=== PATIENT | male | born 1955 | race Caucasian/White ===

== ENCOUNTER 2016-12-16 09:50 | Inpatient (IN) | payer OTHER ==
[2016-12-16] VITALS (13 sets, daily range): BP systolic 111–129; BP diastolic 62–84; PULSE 40–84; RESP 16–20; TEMP 97.4–98.2; O2SAT 95–99
[~2016-12-16] VITALS: Ht 177.8 cm; Wt 81.9 kg
[~2016-12-16 09:50] MED LIST: ANUS25SU PR; ASPI81TA11 PO; ENAL20TA PO; HYDR-2768 PO; METO100T PO; POTA-243 PO; PRAV40TA PO
--- NOTE | 2016-12-16 10:20 | PD ---
HPI Chief Complaint: Chest Pain Time Seen by Provider: 10:07 Travel History International Travel<30 days: No Contact w/Intl Traveler<30days: No Traveled to known affect area: No History of Present Illness HPI 61-year-old male complains of chest pain. Patient states that he has intermittent chest pain for the past 3 months. Patient states the pain associate with exertion. Patient states the pain is sharp burning pain started on the left thumb with radiation to the left chest and across anterior chest wall. Patient denies any palpitation diaphoresis. Patient states that the pain usually lasts about 5 minutes and resolved completely. Patient has history of CAD, status post [place] and CABG in 2008. Patient has history hypertension, dyslipidemia. Patient is a smoker. Patient denies any history of diabetes. Patient was seen by physician at the [facility] yesterday and had stress test done. Patient could not finish the stress test because he started having shortness of breath. Patient was advised to go to the emergency room for evaluation. Patient denies any chest pain today. PFSH Past Medical History Hx Anticoagulant Therapy: Yes (81 MG ASA DAILY ) Arthritis: No Asthma: No Autoimmune Disease: No Blood Disorders: No Anxiety: No Depression: No Heart Rhythm Problems: No Cancer: No Cardiovascular Problems: Yes High Cholesterol: No Chemotherapy: No Chest Pain: No Congestive Heart Failure: No COPD: No Cerebrovascular Accident: No Coronary Artery Disease: Yes Diabetes: No Diminished Hearing: No Endocrine: No GERD: No Glaucoma: No Genitourinary: No Headaches: No Hepatitis: No Hiatal Hernia: No Hypertension: Yes Immune Disorder: No Kidney Stones: No Musculoskeletal: No Neurologic: No Psychiatric: No Reproductive: No Respiratory: No Immunizations Current: No Migraines: No Myocardial Infarction: No Radiation Therapy: No Renal Failure: No Seizures: No Sickle Cell Disease: No Sleep Apnea: No Thyroid Disease: No Ulcer: No ?: Not Past Surgical History Abdominal Surgery: No AICD: No Appendectomy: No Arteriovenous Shunt: No Cardiac Surgery: No Cholecystectomy: No Coronary Artery Bypass Graft: Yes Ear Surgery: No Endocrine Surgery: No Eye Surgery: No Genitourinary Surgery: No Gynecologic Surgery: No Insulin Pump: No Joint Replacement: No Oral Surgery: No Pacemaker: No Thoracic Surgery: No Social History Alcohol Use: Yes (OCCASIONALLY) Tobacco Use: Yes (CIGARS ONCE-TWICE/WEEK) Substance Use: No Allergies-Medications (Allergen,Severity, Reaction): Coded Allergies: No Known Allergies (Verified , 10/31/14) Reported Meds & Prescriptions Reported Meds & Active Scripts Active Reported Potassium Chloride CR (Potassium Chloride) 10 Meq Tab 10 Meq PO DAILY Metoprolol Tartrate 50 Mg Tab 50 Mg PO BID Hydrochlorothiazide 25 Mg Tab 25 Mg PO DAILY Enalapril (Enalapril Maleate) 20 Mg Tab 20 Mg PO BID Aspirin 81 Mg Tabdr 81 Mg PO DAILY Review of Systems General / Constitutional: No: Fever Eyes: No: Visual changes HENT: No: Headaches Cardiovascular: Positive: Chest Pain or Discomfort Respiratory: No: Shortness of Breath Gastrointestinal: No: Abdominal Pain Genitourinary: No: Dysuria Musculoskeletal: No: Pain Skin: No Rash Neurologic: No: Weakness Psychiatric: No: Depression Endocrine: No: Polydipsia Hematologic/Lymphatic: No: Easy Bruising Physical Exam Narrative GENERAL: Well-nourished, well-developed patient. SKIN: Warm and dry. HEAD: Normocephalic. EYES: No scleral icterus. No injection or drainage. NECK: Supple, trachea midline. No JVD or lymphadenopathy. CARDIOVASCULAR: Regular rate and rhythm without murmurs, gallops, or rubs. RESPIRATORY: Breath sounds equal bilaterally. No accessory muscle use. GASTROINTESTINAL: Abdomen soft, non-tender, nondistended. MUSCULOSKELETAL: No cyanosis, or edema. BACK: Nontender without obvious deformity. No CVA tenderness. Neurologic exam normal. Data Data Last Documented VS Vital Signs Date Time Temp Pulse Resp B/P Pulse Ox O2 Delivery O2 Flow Rate FiO2 12/16/16 10:17 97 Room Air 12/16/16 10:09 67 16 12/16/16 10:02 98.2 126/84 Orders Electrocardiogram (12/16/16 ) Complete Blood Count With Diff (12/16/16 10:13) Comprehensive Metabolic Panel (12/16/16 10:13) Creatine Kinase (Cpk) (12/16/16 10:13) Troponin I (12/16/16 10:13) Prothrombin Time / Inr (Pt) (12/16/16 10:13) Act Partial Throm Time (Ptt) (12/16/16 10:13) Chest, Single Ap (12/16/16 10:13) Iv Access Insert/Monitor (12/16/16 10:13) Ecg Monitoring (12/16/16 10:13) Oximetry (12/16/16 10:13) Labs Laboratory Tests Test 12/16/16 10:17 White Blood Count 8.3 TH/MM3 Red Blood Count 4.97 MIL/MM3 Hemoglobin 14.6 GM/DL Hematocrit 43.7 % Mean Corpuscular Volume 88.1 FL Mean Corpuscular Hemoglobin 29.4 PG Mean Corpuscular Hemoglobin 33.4 % Concent Red Cell Distribution Width 13.9 % Platelet Count 218 TH/MM3 Mean Platelet Volume 7.8 FL Neutrophils (%) (Auto) 62.6 % Lymphocytes (%) (Auto) 23.9 % Monocytes (%) (Auto) 10.8 % Eosinophils (%) (Auto) 2.3 % Basophils (%) (Auto) 0.4 % Neutrophils # (Auto) 5.2 TH/MM3 Lymphocytes # (Auto) 2.0 TH/MM3 Monocytes # (Auto) 0.9 TH/MM3 Eosinophils # (Auto) 0.2 TH/MM3 Basophils # (Auto) 0.0 TH/MM3 CBC Comment DIFF FINAL Differential Comment Prothrombin Time 10.5 SEC Prothromb Time International 1.0 RATIO Ratio Activated Partial 26.8 SEC Thromboplast Time Sodium Level 139 MEQ/L Potassium Level 3.6 MEQ/L Chloride Level 103 MEQ/L Carbon Dioxide Level 28.9 MEQ/L Anion Gap 7 MEQ/L Blood Urea Nitrogen 22 MG/DL Creatinine 1.46 MG/DL Estimat Glomerular Filtration 49 ML/MIN Rate Random Glucose 92 MG/DL Calcium Level 9.0 MG/DL Total Bilirubin 0.9 MG/DL Aspartate Amino Transf 22 U/L (AST/SGOT) Alanine Aminotransferase 20 U/L (ALT/SGPT) Alkaline Phosphatase 95 U/L Total Creatine Kinase 98 U/L Troponin I 0.26 NG/ML Total Protein 7.1 GM/DL Albumin 3.5 GM/DL MDM Medical Decision Making Medical Screen Exam Complete: Yes Emergency Medical Condition: Yes Interpretation(s) 10:19 AM. EKG shows sinus rhythm T-wave inversion in lead I, II, aVR, aVL, V4 through V6. 12:28 PM. Last Impressions Chest X-Ray 12/16/16 1013 Signed Impressions: Service Date/Time: December 10:40 - CONCLUSION: No acute disease. Sky Herrera MD 12:28 PM. CBC within normal limit. BUN 22. Creatinine 1.46. Troponin 0.26. Differential Diagnosis Differential diagnosis including angina, AK, PE, pneumothorax. Narrative Course 61-year-old male with intermittent chest pain. Patient had a stress test done yesterday and did not pass. Patient was advised by his physician to go to ED for evaluation. Patient denies any chest pain today. Patient has history of CAD status post CABG. Diagnosis Primary Impression: NSTEMI (non-ST elevated myocardial infarction) Finn Alvarenga MD Dec 16, 2016 10:20
[2016-12-16] MEDS ORDERED: POTA10TA8 PO (10:24)
[2016-12-16] MEDS ORDERED: ASPI1TAB69 PO (10:24)
[2016-12-16] MEDS ORDERED: HYDR25TA5 PO (10:24)
[2016-12-16] MEDS ORDERED: ENAL20TA PO (10:24)
[2016-12-16] MEDS ORDERED: METO50TA PO (10:24)
[2016-12-16 10:25] LABS: AUTOMATED NEUTROPHIL # 5.2 TH/MM3 (1.8-7.7); BASOPHIL % 0.4 % (0.0-2.0); EOSINOPHIL # 0.2 TH/MM3 (0-0.4); EOSINOPHIL % 2.3 % (0.0-4.0); HEMATOCRIT 43.7 % (39.0-51.0); HEMO FLAGS DIFF FINAL; LYMPH % 23.9 % (9.0-44.0); MEAN CELL VOLUME 88.1 FL (80.0-100.0); MEAN CORPUSCULAR HEMOGLOBIN 29.4 PG (27.0-34.0); MEAN CORPUSCULAR HGB CONC 33.4 % (32.0-36.0); MONO % 10.8 % (0.0-8.0); NEUT % 62.6 % (16.0-70.0); PLATELET COUNT 218 TH/MM3 (150-450); RED BLOOD COUNT 4.97 MIL/MM3 (4.50-5.90); RED CELL DISTRIBUTION WIDTH 13.9 % (11.6-17.2); WHITE BLOOD COUNT 8.3 TH/MM3 (4.0-11.0)
[2016-12-16 10:34] LABS: APTT (PATIENT) 26.8 SEC (24.3-30.1); PROTHROMBIN TIME - PATIENT 10.5 SEC (9.8-11.6)
[2016-12-16 10:44] LABS: ANION GAP 7 MEQ/L (5-15); AST (GOT) 22 U/L (15-37); BICARBONATE 28.9 MEQ/L (21.0-32.0); BLOOD UREA NITROGEN 22 MG/DL (7-18); CHLORIDE 103 MEQ/L (98-107); GLOMERULAR FILTRATION RATE 49 ML/MIN (>89); POTASSIUM 3.6 MEQ/L (3.5-5.1); SODIUM (NA) 139 MEQ/L (136-145)
[2016-12-16 10:50] LABS: ALKALINE PHOSPHATASE 95 U/L (45-117); ALT (GPT) 20 U/L (12-78); TOTAL BILIRUBIN ADULT 0.9 MG/DL (0.2-1.0)
[2016-12-16 10:52] LABS: CREATINE KINASE 98 U/L (39-308)
--- NOTE | 2016-12-16 11:15 | RADRPT ---
EXAM DATE/TIME: 12/16/2016 10:40 [facility] COMPARISON: No previous studies available for comparison. INDICATIONS : Patient had an abnormal stress done yesterday at the [facility] in [place]. His PCP told him to come to [facility] today. MEDICAL HISTORY : Hypertension. SURGICAL HISTORY : CABG. ENCOUNTER: Initial ACUITY: 1 day PAIN SCORE: 0/10 LOCATION: Bilateral chest FINDINGS: Patient is status post sternotomy. There is a pacing lead seen over the left chest. A pacemaker is no t present. The heart size is normal. The lungs are clear. No effusion is seen. CONCLUSION: No acute disease. Sky Herrera MD on December 16, 2016 at 11:12 Board Certified Radiologist. This report was verified electronically.
[2016-12-16] MEDS ORDERED: HEPARIN SODIUM - IV 10,000 UNITS/10 ML VIAL IV ONE (13:00)
[2016-12-16] MEDS ORDERED: HEPARIN-D5W INJ 250 ML IV SCH (13:00)
[2016-12-16] MEDS ORDERED: NITROGLYCERIN 2% OINT 1 GM PACKET TOPICAL ONE (13:00)
[2016-12-16] MEDS ORDERED: METOCLOPRAMIDE HCL 10 MG/2 ML VIAL IV PUSH PRN (13:30)
[2016-12-16] MEDS ORDERED: ONDANSETRON HCL 4 MG/2 ML VIAL IVP PRN (13:30)
[2016-12-16] MEDS ORDERED: SODIUM CHLORIDE 0.9% FLUSH 5 ML FLUSH FLUSH PRN (13:30)
[2016-12-16] MEDS ORDERED: ACETAMINOPHEN 325 MG TAB PO PRN (13:30)
[2016-12-16] MEDS ORDERED: NALOXONE HCL 0.4 MG/ML AMP IV PRN (13:30)
[2016-12-16] MEDS ORDERED: ZOLPIDEM TARTRATE 5 MG TAB PO PRN (13:30)
[2016-12-16] MEDS ORDERED: BISACODYL 10 MG SUPP PR PRN (13:30)
--- NOTE | 2016-12-16 13:40 | HHI.HP ---
[facility] Admission Diagnosis NSTEMI Diagnoses: Chief Complaint: Chest pain Travel History International Travel<30 Days: No Contact w/Intl Traveler <30 Da: No Traveled to Known Affected Are: No History of Present Illness This is a pleasant 61 y/o Male who has Intermittent chest pain for the last three months, associated with exertion, he has Sharp burning pain started on left thumb with radiation, left chest pain and across anterior chest pain, Patient denies any palpitation diaphoresis. Patient states that the pain usually lasts about 5 minutes and resolved completely. Patient has history of CAD, status post [place] and CABG in 2008. Patient has history hypertension, dyslipidemia. Patient is a smoker. Patient denies any history of diabetes. Patient was seen by physician at the [facility] yesterday a nd had stress test done. Patient could not finish the stress test because he started having shortness of breath. Patient was advised to go to the emergency room for evaluation. Patient denies any chest pain today. discussed today by ER specialist with residential support specialist Doctor Patricio who asked to transfer the patient to [facility] ICU and with Heparin drip for Cardiac Cath in am tomorrow. 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 Past Family Social History Past Medical History CAD Hypertension Past Surgical History CABG Reported Medications Reported Meds & Active Scripts Active Reported Potassium Chloride CR (Potassium Chloride) 10 Meq Tab 10 Meq PO DAILY Metoprolol Tartrate 50 Mg Tab 50 Mg PO BID Hydrochlorothiazide 25 Mg Tab 25 Mg PO DAILY Enalapril (Enalapril Maleate) 20 Mg Tab 20 Mg PO BID Aspirin 81 Mg Tabdr 81 Mg PO DAILY Allergies: Coded Allergies: No Known Allergies (Verified , 10/31/14) Active Ordered Medications Current Medications Medications (Trade) Dose Ordered Sig/[place] Route Start Time Stop Time Status Last Admin (Heparin-D5W Inj) 250 ml @ 0 mls/hr TITRATE IV 12/16/16 13:00 12/16/16 13:23 (Ecotrin Ec) 81 mg DAILY PO 12/17/16 09:00 (Vasotec) 20 mg BID PO 12/16/16 21:00 (Hydrodiuril) 25 mg DAILY PO 12/17/16 09:00 Metoprolol Tartrate 50 mg 50 mg BID PO 12/16/16 21:00 (NS 1000 ml Inj) 1,000 ml @ 100 mls/hr Q10H IV 12/16/16 13:25 UNV (NS Flush) 2 ml UNSCH PRN FLUSH 12/16/16 13:30 UNV (NS Flush) 2 ml BID FLUSH 12/16/16 21:00 UNV (Tylenol) 650 mg Q4H PRN PO 12/16/16 13:30 UNV (Zofran Inj) 4 mg Q6H PRN IVP 12/16/16 13:30 UNV (Reglan Inj) 5 mg Q6H PRN IV PUSH 12/16/16 13:30 UNV (Dulcolax Supp) 10 mg DAILY PRN KS 12/16/16 13:30 UNV (Colace) 100 mg Q12H PO 12/16/16 13:30 UNV (Ambien) 5 mg HS PRN PO 12/16/16 13:30 UNV (Narcan Inj) 0.4 mg UNSCH PRN IV 12/16/16 13:30 UNV Family History father with Stomach Cancer, Mother with CAD. Social History Lives alone in a house Alcohol abuse occasional Tobacco he smokes Cigars once to twice a week. Denies other toxic habits. Physical Exam Vital Signs Vital Signs Date Time Temp Pulse Resp B/P Pulse Ox O2 Delivery O2 Flow Rate FiO2 12/16/16 13:14 69 18 119/77 98 Room Air 12/16/16 10:17 97 Room Air 12/16/16 10:09 67 16 98 Room Air 12/16/16 10:02 98.2 62 16 126/84 99 12/16/16 09:51 98.0 66 20 129/79 98 Room Air Physical Exam GENERAL: Well-nourished, well-developed patient. SKIN: Warm and dry. HEAD: Normocephalic. EYES: No scleral icterus. No injection or drainage. NECK: Supple, trachea midline. No JVD or lymphadenopathy. CARDIOVASCULAR: Regular rate and rhythm without murmurs, gallops, or rubs. RESPIRATORY: Breath sounds equal bilaterally. No accessory muscle use. GASTROINTESTINAL: Abdomen soft, non-tender, nondistended. MUSCULOSKELETAL: No cyanosis, or edema. BACK: Nontender without obvious deformity. No CVA tenderness. Neurologic exam normal. Laboratory Laboratory Tests Test 12/16/16 10:17 White Blood Count 8.3 Red Blood Count 4.97 Hemoglobin 14.6 Hematocrit 43.7 Mean Corpuscular Volume 88.1 Mean Corpuscular Hemoglobin 29.4 Mean Corpuscular Hemoglobin 33.4 Concent Red Cell Distribution Width 13.9 Platelet Count 218 Mean Platelet Volume 7.8 Neutrophils (%) (Auto) 62.6 Lymphocytes (%) (Auto) 23.9 Monocytes (%) (Auto) 10.8 Eosinophils (%) (Auto) 2.3 Basophils (%) (Auto) 0.4 Neutrophils # (Auto) 5.2 Lymphocytes # (Auto) 2.0 Monocytes # (Auto) 0.9 Eosinophils # (Auto) 0.2 Basophils # (Auto) 0.0 CBC Comment DIFF FINAL Differential Comment Prothrombin Time 10.5 Prothromb Time International 1.0 Ratio Activated Partial 26.8 Thromboplast Time Sodium Level 139 Potassium Level 3.6 Chloride Level 103 Carbon Dioxide Level 28.9 Anion Gap 7 Blood Urea Nitrogen 22 Creatinine 1.46 Estimat Glomerular Filtration 49 Rate Random Glucose 92 Calcium Level 9.0 Total Bilirubin 0.9 Aspartate Amino Transf 22 (AST/SGOT) Alanine Aminotransferase 20 (ALT/SGPT) Alkaline Phosphatase 95 Total Creatine Kinase 98 Troponin I 0.26 Total Protein 7.1 Albumin 3.5 Result Diagram: 12/16/16 1017 12/16/16 1017 Imaging Last Impressions Chest X-Ray 12/16/16 1013 Signed Impressions: Service Date/Time: December 10:40 - CONCLUSION: No acute disease. Sky Herrera MD Assessment and Plan Assessment and Plan 1. Atypical chest pain in a patient with CAD status pos CABG he could not complete his Stress test yesterday and came to this facility today, admitted for Cardiac Cath tomorrow. EKG shows sinus rhythm T-wave inversion in lead I, II, aVR, aVL, V4 through V6. Probable abnormal Stress test already seen by residential support specialist continue heparin drip and Cardiac cath in am tomorrow. given Aspirin. continue Cardiac monitoring, Cardiac Enzymes. Echocardiogram today. 2. Acute Kidney Injury continue IV fluids. 3. Hypertension Controlled. DVT prophylaxis with Heparin. I had the pleasure to talk about this case with Emergency Medicine Specialist Doctor Finn Alvarenga his input and recommendations were highly appreciated. Code Status Full Code. Physician Certification 2 Midnight Certification Type: Admission for Inpatient Services Order for Inpatient Services The services are ordered in accordance with Medicare regulations or non- Medicare payer requirements, as applicable. In the case of services not specified as inpatient-only, they are appropriately provided as inpatient services in accordance with the 2-midnight benchmark. Estimated LOS (days): 1 days is the estimated time the patient will need to remain in the hospital, assuming treatment plan goals are met and no additional complications. Post-Hospital Plan: Home Ed Pope MD Dec 16, 2016 13:40
--- NOTE | 2016-12-16 13:47 | EKG ---
Date Performed: 12/16/2016 Time Performed: 08:07:30 PTAGE: 61 years EKG: SINUS BRADYCARDIA ST DEVIATION AND MODERATE T-WAVE ABNORMALITY, CONSIDER LATERAL ISCHEMIA A BNORMAL ECG NO PREVIOUS TRACING DOCTOR: Juan Tamez Interpretating Date/Time 12/16/2016 13:44:50
[2016-12-16] MEDS ORDERED: SODIUM CHLOR 0.9% 1000 ML INJ 1,000 ML IV SCH (14:00)
[2016-12-16] MEDS ORDERED: POTASSIUM CHLORIDE 20 MEQ CONTROLLED RELEASE TAB PO ONE (15:00)
[2016-12-16] MEDS: DOCUSATE SODIUM 100 MG CAP PO SCH ×2 (16:23→20:41)
[2016-12-16] MEDS: PRAVASTATIN SOD 40 MG TAB PO SCH (16:23)
[2016-12-16] MEDS: SODIUM CHLOR 0.9% 1000 ML INJ 1,000 ML IV SCH (18:00)
--- NOTE | 2016-12-16 19:45 | MB ---
cc: KHADRA WRIGHT DATE OF CONSULTATION: 12/16/2016. REASON FOR CONSULTATION: Chest pain. HISTORY OF PRESENT ILLNESS: This is a 61-year-old gentleman with known history of prior coronary disease and bypass [place] [address] Lora. He has been having intermittent chest pain for the last few months, primarily with exertion. He describes it as a chest tightness across the left anterior to midsternal region. It also radiates towards his left arm and thumb. It is associated with some shortness of breath but no diaphoresis and is resolved with rest. He underwent stress test at the [place] yesterday. Initially it sounds like they attempted a treadmill exercise stress test which he was unable to complete successfully and converted over to a Lexiscan. He was called after arriving back home from [place] at the [facility] and was told that his stress test was abnormal and that he need to come to [place] for evaluation. He came to [place] here today. He is currently chest pain-free. 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 He was admitted to the [facility] and we were consulted for consideration of cardiac catheterization. PAST MEDICAL HISTORY: 1. Coronary artery disease. 2. Hypertension. PAST SURGICAL HISTORY: 1. He has history of prior coronary bypass surgery which includes left internal mammary to left anterior descending coronary artery, saphenous vein graft to the diagonal branch and obtuse marginal branch or ramus branch and a posterior descending branch. There is a total five grafts. REPORTED MEDICATIONS: 1. Metoprolol. 2. Hydrochlorothiazide. 3. Enalapril. 4. Aspirin. 5. Potassium. ALLERGIES: NO KNOWN DRUG ALLERGIES. REVIEW OF SYSTEMS: His twelve-point review of systems was performed and is negative unless otherwise noted in the history of present illness. PHYSICAL EXAMINATION: VITAL SIGNS: Temperature is 97, pulse 75, blood pressure 123/62 mmHg. GENERAL: Alert and oriented times three and in no acute distress. HEAD, EYES, EARS, NOSE, THROAT: Pupils are reactive to light and accommodation. Extraocular muscles are intact. NECK: No jugular venous distension. No thyromegaly or lymphadenopathy. No carotid bruits. LUNGS: Clear to auscultation bilaterally. CARDIAC: Regular rate and rhythm without murmurs, rubs or gallops. ABDOMEN: Nontender, nondistended. Good bowel sounds. No hepatosplenomegaly. EXTREMITIES: Show no clubbing, cyanosis or edema. Good peripheral pulses. NEUROLOGICAL EXAMINATION: Cranial nerves are intact. Motor strength is grossly intact. LABORATORY DATA: His labs were WBC 8.3, hemoglobin 14.6, platelet count 218,000. INR is 1. Sodium 139, potassium 4.6, BUN is 22, creatinine is 1.46. Troponin is 0.26. EKGS: Electrocardiogram shows sinus bradycardia and lateral T-wave inversions. ASSESSMENT: 1. [id number] OK. 2. History of coronary disease with prior bypass surgery 3. Hypertension 4. Renal insufficiency. PLAN: Given the mildly elevated troponin, suggestive of anginal symptoms, and abnormal stress test, it is obvious we need to proceed with cardiac catheterization. The patient is agreeable. We will approach from the right groin. We have his graft anatomy from his operative report in 2008. Will gently hydrate him prior to the procedure. He is currently chest pain-free on heparin drip. MD FELIPE Dunn/SKINNY /5:56 PM /7:31 PM
[2016-12-16 20:13] LABS: APTT (PATIENT) 48.1 SEC (24.3-30.1)
[2016-12-16] MEDS: ENALAPRIL MALEATE 10 MG TAB PO SCH (20:41)
[2016-12-16] MEDS: METOPROLOL TARTRATE 50 MG TAB PO SCH (20:43)
[2016-12-16 21:36] LABS: FREE T4 0.84 NG/DL (0.76-1.46); HDL CHOLESTEROL 34.8 MG/DL (40.0-60.0); LDL CHOLESTEROL 88 MG/DL (0-99)
[2016-12-16 22:41] LABS: HEMOGLOBIN A1a 1.1 %; HEMOGLOBIN A1b 0.9 %; HEMOGLOBIN Ao 84.2 %; HEMOGLOBIN LA1C 1.9 %; HEMOGLOBIN P3 4.1 %
[2016-12-16] MEDS: SODIUM CHLORIDE 0.9% FLUSH 5 ML FLUSH FLUSH SCH (23:53)
[2016-12-17] VITALS (26 sets, daily range): BP systolic 104–120; BP diastolic 66–77; PULSE 42–87; RESP 16–18; TEMP 97.6–98.6; O2SAT 94–98
[2016-12-17 00:47] LABS: BLOOD, URINE NEG (NEG); GLUCOSE,URINE NEG (NEG); KETONE, URINE NEG (NEG); NITRITE,URINE NEG (NEG); SQUAMOUS EPITHELIAL CELL URINE <1 /hpf (0-5); URINE COLOR LIGHT-YELLOW (YELLW/STRAW)
[2016-12-17 00:49] LABS: COMMENT (UR) CULT NOT INDICATED; CULTURE IF INDICATED CULT NOT INDICATED
[2016-12-17 01:48] LABS: AUTOMATED NEUTROPHIL # 5.8 TH/MM3 (1.8-7.7); BASOPHIL % 0.4 % (0.0-2.0); EOSINOPHIL # 0.2 TH/MM3 (0-0.4); EOSINOPHIL % 2.1 % (0.0-4.0); HEMATOCRIT 40.5 % (39.0-51.0); HEMO FLAGS DIFF FINAL; LYMPHOCYTE # 2.7 TH/MM3 (1.0-4.8); MEAN CELL VOLUME 88.2 FL (80.0-100.0); MEAN CORPUSCULAR HEMOGLOBIN 29.1 PG (27.0-34.0); MONO % 7.5 % (0.0-8.0); PLATELET COUNT 187 TH/MM3 (150-450); RED BLOOD COUNT 4.59 MIL/MM3 (4.50-5.90); RED CELL DISTRIBUTION WIDTH 13.9 % (11.6-17.2); WHITE BLOOD COUNT 9.5 TH/MM3 (4.0-11.0)
[2016-12-17 01:57] LABS: APTT (PATIENT) 46.4 SEC (24.3-30.1); PROTHROMBIN TIME - PATIENT 11.3 SEC (9.8-11.6)
[2016-12-17 02:04] LABS: BICARBONATE 25.5 MEQ/L (21.0-32.0); POTASSIUM 3.7 MEQ/L (3.5-5.1)
[2016-12-17] MEDS: SODIUM CHLOR 0.9% 1000 ML INJ 1,000 ML IV SCH ×2 (04:00→05:51)
--- NOTE | 2016-12-17 08:19 | HHI.PR ---
Subjective Remarks This is a pleasant 61 y/o Male who has Intermittent chest pain for the last three months, associated with exertion, he has Sharp burning pain started on left thumb with radiation, left chest pain and across anterior chest pain, Patient denies any palpitation diaphoresis. Patient states that the pain usually lasts about 5 minutes and resolved completely. Patient has history of CAD, status post [place] and CABG in 2008. Patient has history hypertension, dyslipidemia. Patient is a smoker. Patient denies any history of diabetes. Patient was seen by physician at the [place] clinic yesterday a nd had stress test done. Patient could not finish the stress test because he started having shortness of breath. Patient was advised to go to the emergency room for evaluation. Patient denies any chest pain today. discussed today by ER specialist with optical instrument specialist Doctor Patricio who asked to transfer the patient to CV ICU and with Heparin drip for Cardiac Cath in am tomorrow. 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 12/17 Seen in his bedroom status post Cardiac Cath, found Severe Three vessel Coronary artery disease, 1/5 Coronary bypass grafts were patent, normal descending aorta, Normal left sided filling pressures, has Diffuse disease, left internal mammary artery is patent Right Coronary is Collateralized, only area for intervention is Circumflex Proximally, not candidate to repeat Surgical Bypass medical management. Objective Vital Signs Date Time Temp Pulse Resp B/P Pulse Ox O2 Delivery O2 Flow Rate FiO2 12/17/16 06:00 64 12/17/16 05:00 64 12/17/16 04:00 65 12/17/16 03:00 98.2 42 16 119/69 97 12/17/16 03:00 60 12/17/16 02:00 60 12/17/16 01:00 60 12/17/16 00:00 79 12/16/16 23:00 62 12/16/16 23:00 98.1 40 16 115/69 99 12/16/16 22:00 79 12/16/16 21:00 76 12/16/16 20:00 72 12/16/16 19:00 98.2 78 16 120/73 95 12/16/16 19:00 78 12/16/16 18:00 74 12/16/16 17:00 84 12/16/16 15:45 97.4 75 18 123/62 97 12/16/16 14:26 70 18 111/78 97 Room Air 12/16/16 13:14 69 18 119/77 98 Room Air 12/16/16 10:17 97 Room Air 12/16/16 10:09 67 16 98 Room Air 12/16/16 10:02 98.2 62 16 126/84 99 12/16/16 09:51 98.0 66 20 129/79 98 Room Air I/O 12/16/16 12/16/16 12/16/16 12/17/16 12/17/16 12/17/16 07:00 15:00 23:00 07:00 15:00 23:00 Intake Total 603 ml Balance 603 ml Intake Oral 250 ml IV Total 353 ml # Voids 1 Result Diagram: 12/17/16 0120 12/17/16 0120 Imaging Last Impressions Chest X-Ray 12/16/16 1013 Signed Impressions: Service Date/Time: December 10:40 - CONCLUSION: No acute disease. Sky Herrera MD Procedures No procedures performed Other Results Laboratory Tests Test 12/16/16 12/16/16 12/17/16 12/17/16 10:17 18:30 00:00 01:20 Total Bilirubin 0.9 MG/DL Aspartate Amino Transf 22 U/L (AST/SGOT) Alanine Aminotransferase 20 U/L (ALT/SGPT) Alkaline Phosphatase 95 U/L Total Protein 7.1 GM/DL Albumin 3.5 GM/DL Hemoglobin A1c 6.3 % Total Creatine Kinase 98 U/L Troponin I 0.12 NG/ML Triglycerides Level 64 MG/DL Cholesterol Level 136 MG/DL LDL Cholesterol 88 MG/DL HDL Cholesterol 34.8 MG/DL Cholesterol/HDL Ratio 3.90 RATIO Free Thyroxine 0.84 NG/DL Thyroid Stimulating Hormone 1.340 uIU/ML 3rd Gen Blood Type O POSITIVE Antibody Screen NEGATIVE Blood Bank Comment Urine Color LIGHT-YELLOW Urine Turbidity CLEAR Urine pH 6.0 Urine Specific [place] 1.008 Urine Protein NEG mg/dL Urine Glucose (UA) NEG mg/dL Urine Ketones NEG mg/dL Urine Occult Blood NEG Urine Nitrite NEG Urine Bilirubin NEG Urine Urobilinogen LESS THAN 2.0 MG/DL Urine Leukocyte Esterase NEG Urine Squamous Epithelial <1 /hpf Cells Microscopic Urinalysis Comment CULT NOT INDICATED White Blood Count 9.5 TH/MM3 Red Blood Count 4.59 MIL/MM3 Hemoglobin 13.4 GM/DL Hematocrit 40.5 % Mean Corpuscular Volume 88.2 FL Mean Corpuscular Hemoglobin 29.1 PG Mean Corpuscular Hemoglobin 33.0 % Concent Red Cell Distribution Width 13.9 % Platelet Count 187 TH/MM3 Mean Platelet Volume 8.1 FL Neutrophils (%) (Auto) 61.0 % Lymphocytes (%) (Auto) 29.0 % Monocytes (%) (Auto) 7.5 % Eosinophils (%) (Auto) 2.1 % Basophils (%) (Auto) 0.4 % Neutrophils # (Auto) 5.8 TH/MM3 Lymphocytes # (Auto) 2.7 TH/MM3 Monocytes # (Auto) 0.7 TH/MM3 Eosinophils # (Auto) 0.2 TH/MM3 Basophils # (Auto) 0.0 TH/MM3 CBC Comment DIFF FINAL Differential Comment Prothrombin Time 11.3 SEC Prothromb Time International 1.0 RATIO Ratio Activated Partial 46.4 SEC Thromboplast Time Sodium Level 142 MEQ/L Potassium Level 3.7 MEQ/L Chloride Level 107 MEQ/L Carbon Dioxide Level 25.5 MEQ/L Anion Gap 10 MEQ/L Blood Urea Nitrogen 19 MG/DL Creatinine 1.29 MG/DL Estimat Glomerular Filtration 56 ML/MIN Rate Random Glucose 98 MG/DL Calcium Level 8.4 MG/DL Objective Remarks GENERAL: Well-nourished, well-developed patient. SKIN: Warm and dry. HEAD: Normocephalic. EYES: No scleral icterus. No injection or drainage. NECK: Supple, trachea midline. No JVD or lymphadenopathy. CARDIOVASCULAR: Regular rate and rhythm without murmurs, gallops, or rubs. RESPIRATORY: Breath sounds equal bilaterally. No accessory muscle use. GASTROINTESTINAL: Abdomen soft, non-tender, nondistended. MUSCULOSKELETAL: No cyanosis, or edema. BACK: Nontender without obvious deformity. No CVA tenderness. Neurologic exam normal. Medications and IVs Current Medications Medications (Trade) Dose Ordered Sig/[place] Route Start Time Stop Time Status Last Admin (Heparin-D5W Inj) 250 ml @ 0 mls/hr TITRATE IV 12/16/16 13:00 12/16/16 13:23 (Ecotrin Ec) 81 mg DAILY PO 12/17/16 09:00 (Vasotec) 20 mg BID PO 12/16/16 21:00 12/16/16 20:41 (Hydrodiuril) 25 mg DAILY PO 12/17/16 09:00 (Lopressor) 50 mg BID PO 12/16/16 21:00 12/16/16 20:43 (NS Flush) 2 ml UNSCH PRN FLUSH 12/16/16 13:30 (NS Flush) 2 ml BID FLUSH 12/16/16 21:00 12/16/16 23:53 (Tylenol) 650 mg Q4H PRN PO 12/16/16 13:30 (Zofran Inj) 4 mg Q6H PRN IVP 12/16/16 13:30 (Reglan Inj) 5 mg Q6H PRN IV PUSH 12/16/16 13:30 (Dulcolax Supp) 10 mg DAILY PRN [place] 12/16/16 13:30 (Colace) 100 mg Q12HR PO 12/16/16 15:00 12/16/16 20:41 (Ambien) 5 mg HS PRN PO 12/16/16 13:30 (Narcan Inj) 0.4 mg UNSCH PRN IV 12/16/16 13:30 Pravastatin Sodium 40 mg 40 mg DAILY PO 12/16/16 15:00 12/16/16 16:23 (NS 1000 ml Inj) 1,000 ml @ 100 mls/hr Q10H IV 12/16/16 18:00 12/17/16 17:59 12/17/16 05:51 A/P Assessment and Plan 1. Atypical chest pain in a patient with CAD status pos CABG he could not complete his Stress test yesterday and came to this facility today, admitted for Cardiac Cath tomorrow. EKG shows sinus rhythm T-wave inversion in lead I, II, aVR, aVL, V4 through V6. Probable abnormal Stress test already seen by optical instrument specialist continue heparin drip and Cardiac cath in am tomorrow. given Aspirin. continue Cardiac monitoring, Cardiac Enzymes. Echocardiogram left ventricle cavity size mildly dilated, wall thickness was increased in pattern of LVH, Systolic function mildly reduced EF 45-50%, Hypokinesis of the mid inferolateral, inferior and apical myocardium. has Severe three vessel disease, 1/5 of bypass occluded, continue medical management not suitable for redo bypass. 2. Acute Kidney Injury improved today 3. Hypertension Controlled. DVT prophylaxis with Heparin. Awaiting discharge Order by Cardiology for discharge. Code Status Full Code. Discharge Planning Expected by tomorrow. Ed Pope MD Dec 17, 2016 08:18
[2016-12-17] MEDS: METOPROLOL TARTRATE 50 MG TAB PO SCH ×2 (08:35→21:43)
[2016-12-17] MEDS: ENALAPRIL MALEATE 10 MG TAB PO SCH ×2 (08:35→21:44)
[2016-12-17] MEDS: DOCUSATE SODIUM 100 MG CAP PO SCH ×2 (08:35→21:44)
[2016-12-17] MEDS: ASPIRIN EC 81 MG TABEC PO SCH (08:35)
[2016-12-17] MEDS: PRAVASTATIN SOD 40 MG TAB PO SCH (08:36)
[2016-12-17] MEDS ORDERED: HEPARIN-NS/PF INJ 500 ML ONE (08:49)
[2016-12-17] MEDS ORDERED: MIDAZOLAM HCL 2 MG/2 ML VIAL ONE ×2 (08:49→09:14)
[2016-12-17] MEDS ORDERED: HYDROCHLOROTHIAZIDE 25 MG TAB PO SCH (09:00)
[2016-12-17] MEDS ORDERED: IOHEXOL 350 MG/ML 100 ML BTL (for Cath Lab) OTHER ONE (09:30)
[2016-12-17] MEDS ORDERED: SODIUM CHLOR 0.9% 1000 ML INJ 1,000 ML IV SCH (09:33)
[2016-12-17] MEDS ORDERED: BACITRACIN OINT 0.9 GM PKT TOP ONE (09:45)
[2016-12-17] MEDS ORDERED: CLOPIDOGREL 75 MG TAB PO SCH (09:45)
[2016-12-17] MEDS ORDERED: ATROPINE SULFATE 1 MG/ML VIAL IV PRN (09:45)
[2016-12-17] MEDS ORDERED: LORazepam 2 MG/ML VIAL IV PRN (09:45)
[2016-12-17] MEDS ORDERED: MISC INFORMATION XX ONE (09:45)
[2016-12-17] MEDS ORDERED: LIDOCAINE HCL 1% 50 ML VIAL INFIL PRN (09:45)
[2016-12-17] MEDS ORDERED: SODIUM CHLOR 0.9% 250 ML INJ 250 ML IV PRN (09:45)
--- NOTE | 2016-12-17 10:35 | MA ---
cc: KHADRA WRIGHT DATE: 12/17/2016 PROCEDURE PERFORMED Fluoroscopy with interpretation. Coronary angiography. Coronary bypass graft angiography. Ascending aortography. Left heart catheterization. Method; and alternatives us with the patient. The patient understood and signed for procedure. PROCEDURE The patient brought catheterization lab and the catheterization table. Right wrist was prepped and draped in sterile fashion. The right groin was prepped and draped in a sterile fashion. Right groin was anesthetized 2% lidocaine. The right common femoral is cannulated 5-Romanian 11 Cm sheath was placed without difficulty. LEFT HEART CATHETERIZATION: Intraventricular hemodynamics measured at 107/30 mmHg. CORONARY ANGIOGRAPHY: Left main coronaries; 1. Rather diffusely diseased small-caliber size, estimated severity of stenosis about 50%. 2. Left anterior descending coronary is occluded in the mid segment just distal to his large septal sql server developer. The proximal segment has mild to moderate luminal irregularities. 3. Left circumflex gives rise to ramus intermedius branch is occluded. The first obtuse marginal branch which is occluded. The proximal segment has a 90% stenosis throughout smaller caliber size does have some collaterals to the distal right coronary artery. 4. The right coronary is occluded proximally. Right coronary distally is collateralized the LAD septal perforators and circumflex distally. CORONARY ARTERY BYPASS GRAFTING ANGIOGRAPHY: 1. Left internal mammary to left anterior descending coronary is patent. The left anterior descending distally has 95% stenosis small caliber size and retrograde fills the remainder left anterior descending coronary which is smaller caliber size. She had a diagonal branch with moderate diffuse disease. 2. Saphenous vein graft to the ramus intermedius branch is occluded. 3. Saphenous vein graft to the obtuse marginal branch is occluded. 4. Saphenous vein graft to the posterior descending branch is occluded. 5. Saphenous vein graft to diagonal branch is occluded. ASCENDING AORTOGRAPHY: Ascending aortography was performed in the left anterior oblique view. The descending aorta was not dilated. The ascending aorta had no to visualize grafts. CONCLUSION 1. Severe three-vessel coronary disease. 2. 1/5 coronary bypass grafts were patent. 3. Normal descending aorta. 4. Normal left-sided filling pressures. PLAN The patient has rather diffuse disease left internal mammary is patent although the distal LAD itself a smaller caliber size and diffuse disease. Right coronary is collateralized. The only territory it is potentially amendable to intervention on be the circumflex proximally. It is a smaller caliber size both the ramus and obtuse marginal branches are occluded so the territory is not large. At this point I think he would be best to an attempt aggressive medical therapy, we will add a long-acting nitrate. He has recurrent chest pain symptoms despite nitrate therapy next consideration that would be intervention of the proximal circumflex coronary artery. He is not a repeat surgical bypass candidate given his small vessel diffuse disease which would not be amendable to a graft conduits. MD FELIPE Dunn/alejandro /9:41 AM /10:26 AM MTDD
[2016-12-17 10:36] LABS: APTT (PATIENT) 33.4 SEC (24.3-30.1)
--- NOTE | 2016-12-17 15:07 | EC ---
Study Study Date:12/17/2016 STUDY CONCLUSIONS SUMMARY - Left ventricle: The cavity size was mildly dilated. Wall thickness was increased in a pattern of mild LVH. Systolic function was mildly reduced. The estimated ejection fraction was in the range of 45% to 50%. Hypokinesis of the mid-distal inferolateral, inferior, and apical myocardium. - Aortic valve: Valve area: 2.33cm^2 (Vmax). - Mitral valve: Mild regurgitation. - Left atrium: The atrium was mildly dilated. If LV function is below 40, please consider prescribing an ACEI or ARB or document rationale for non-use. PROCEDURE DATA STUDY STATUS: Elective. Procedure: Transthoracic echocardiography. Image quality was good. Scanning was performed from the parasternal, apical, and subcostal acoustic windows. Study completion: The patient tolerated the procedure well. Transthoracic echocardiography. M-mode, complete 2D, complete spectral Doppler, and color Doppler. Height: Height: 70in. Weight: Weight: 175.6lb. Body mass index: BMI: 25.3kg/m^2. Body surface area: BSA: 1.98m^2. Patient status: Inpatient. CARDIAC ANATOMY LEFT VENTRICLE: The cavity size was mildly dilated. Wall thickness was increased in a pattern of mild LVH. Systolic function was mildly reduced. The estimated ejection fraction was in the range of 45% to 50%. Regional wall motion abnormalities: Hypokinesis of the mid-distal inferolateral, inferior, and apical myocardium. AORTIC VALVE: Trileaflet; mildly thickened, mildly calcified leaflets. Doppler: Transvalvular velocity was within the normal range. There was no stenosis. No regurgitation. Valve area: 2.33cm^2 (Vmax). Indexed valve area: 1.18cm^2/m^2 (Vmax). AORTA: Aortic root: The aortic root was normal in size. MITRAL VALVE: Structurally normal valve. Doppler: Transvalvular velocity was within the normal range. There was no evidence for stenosis. Mild regurgitation. Valve area by pressure half-time: 3.93cm^2. Indexed valve area by pressure half-time: 1.98cm^2/m^2. LEFT ATRIUM: The atrium was mildly dilated. RIGHT VENTRICLE: The cavity size was normal. Wall thickness was normal. PULMONIC VALVE: Doppler: Transvalvular velocity was within the normal range. There was no evidence for stenosis. No regurgitation. TRICUSPID VALVE: Structurally normal valve. Doppler: Transvalvular velocity was within the normal range. Trace regurgitation. PULMONARY ARTERY: The main pulmonary artery was normal-sized. Systolic pressure was within the normal range. RIGHT ATRIUM: The atrium was normal in size. PERICARDIUM: There was no pericardial effusion. SYSTEMIC VEINS: Inferior vena cava: The vessel was normal in size. Patient weight: 175.6lb _Ejection fraction:_ 65-75% _Fractional shortening:_ 32% up to 5Kg 5-11.5Kg 11.6-22.9Kg 23-45Kg 45-57Kg Aortic Root 7-13 <17 13-22 17-27 17-27 LA diam 6-13 <23 24-38 33-47 37-40 RVID 10-17 7-15 7-15 7-18 8-17 LVIDd 12-22 <32 24-38 33-47 37-40 LVPW 2-4 3-6 5-7 6-8 7-8 IVS 2-4 3-6 5-7 6-8 7-8 BASIC MEASUREMENTS ADULT NORMAL Left ventricle LV internal dimension, ED, chordal *57.2 mm 43-52 level, PLAX LV internal dimension, ES, chordal *45.6 mm 23-38 level, PLAX Fractional shortening, chordal level, *20 % >29 PLAX LV posterior wall thickness, ED 11.1 mm IVS/LVPW ratio, ED 1.02 <1.3 Volume, ED, MOD, 1-plane 124 ml Volume, ES, MOD, 1-plane 56 ml Ejection fraction, MOD, 1-plane 55 % Stroke volume, MOD, 1-plane 68 ml Volume index, ED, MOD, 1-plane 63 ml/m^2 Volume index, ES, MOD, 1-plane 28 ml/m^2 Stroke index, MOD, 1-plane 34.3 ml/m^2 Ventricular septum Septal thickness, ED 11.3 mm Aortic valve Leaflet separation 20 mm 15-26 Left atrium Anterior-posterior dimension 39 mm Anterior-posterior dimension index 1.97 cm/m^2 <2.2 Right ventricle RV internal dimension, ED, PLAX 24.5 mm 19-38 BASIC MEASUREMENTS ADULT NORMAL Aortic valve Leaflet separation 20 mm 15-26 Aorta Root diameter, ED 35 mm 20-37 DOPPLER MEASUREMENTS ADULT NORMAL Aortic valve Peak velocity, S 92.3 cm/s Valve area, Vmax 2.33 cm^2 Valve area index, Vmax 1.18 cm^2/m^2 Mitral valve Peak E-wave velocity 60.7 cm/s Peak A-wave velocity 93.3 cm/s Pressure half-time 56 ms Peak E/A ratio 0.7 Valve area, pressure half-time 3.93 cm^2 Valve area index, pressure half-time 1.98 cm^2/m^2 Pulmonic valve Peak velocity, S 106 cm/s LEGEND: Mean values are shown as u=mean value. Asterisk (*) herbert values outside specified normal range. Prepared and signed by Dread Curry [id number]
--- NOTE | 2016-12-17 21:10 | EKG ---
Date Performed: 12/17/2016 Time Performed: 19:03:06 PTAGE: 61 years EKG: Sinus rhythm Inferior infarct - age undetermined Possible anterior infarct - age undetermined Nonspecific ST-T wa ve changes NO SIGNIFICANT CHANGE FROM PRIOR ELECTROCARDIOGRAM. Abnormal ECG PREVIOUS TRACING : 12/16/2016 08.07 DOCTOR: Davis Junior Interpretating Date/Time 12/17/2016 21:09:39
[2016-12-18] VITALS (14 sets, daily range): BP systolic 90–113; BP diastolic 55–65; PULSE 61–98; RESP 16–18; TEMP 97.9–98.1; O2SAT 95–97
[2016-12-18 06:31] LABS: AUTOMATED NEUTROPHIL # 5.4 TH/MM3 (1.8-7.7); BASOPHIL % 0.5 % (0.0-2.0); EOSINOPHIL # 0.2 TH/MM3 (0-0.4); EOSINOPHIL % 2.2 % (0.0-4.0); HEMATOCRIT 42.8 % (39.0-51.0); HEMO FLAGS DIFF FINAL; LYMPH % 23.2 % (9.0-44.0); LYMPHOCYTE # 1.9 TH/MM3 (1.0-4.8); MEAN CELL VOLUME 88.5 FL (80.0-100.0); MEAN CORPUSCULAR HEMOGLOBIN 29.6 PG (27.0-34.0); MEAN CORPUSCULAR HGB CONC 33.5 % (32.0-36.0); NEUT % 65.1 % (16.0-70.0); PLATELET COUNT 202 TH/MM3 (150-450); RED BLOOD COUNT 4.83 MIL/MM3 (4.50-5.90); RED CELL DISTRIBUTION WIDTH 13.6 % (11.6-17.2); WHITE BLOOD COUNT 8.4 TH/MM3 (4.0-11.0)
[2016-12-18 06:55] LABS: POTASSIUM 3.9 MEQ/L (3.5-5.1)
[2016-12-18] MEDS ORDERED: ISOSORBIDE MONONITRATE 60 MG TAB PO SCH (07:00)
[2016-12-18] MEDS: ENALAPRIL MALEATE 10 MG TAB PO SCH (08:00)
[2016-12-18] MEDS: ASPIRIN EC 81 MG TABEC PO SCH (08:00)
[2016-12-18] MEDS: PRAVASTATIN SOD 40 MG TAB PO SCH (08:00)
[2016-12-18] MEDS: DOCUSATE SODIUM 100 MG CAP PO SCH (08:00)
[2016-12-18] MEDS: METOPROLOL TARTRATE 50 MG TAB PO SCH (08:01)
[2016-12-18] MEDS: SODIUM CHLORIDE 0.9% FLUSH 5 ML FLUSH FLUSH SCH ×2 (08:01→08:24)
--- NOTE | 2016-12-18 11:44 | HHI.PR ---
Subjective Remarks This is a pleasant 61 y/o Male who has Intermittent chest pain for the last three months, associated with exertion, he has Sharp burning pain started on left thumb with radiation, left chest pain and across anterior chest pain, Patient denies any palpitation diaphoresis. Patient states that the pain usually lasts about 5 minutes and resolved completely. Patient has history of CAD, status post [place] and CABG in 2008. Patient has history hypertension, dyslipidemia. Patient is a smoker. Patient denies any history of diabetes. Patient was seen by physician at the [place] [facility] yesterday a nd had stress test done. Patient could not finish the stress test because he started having shortness of breath. Patient was advised to go to the emergency room for evaluation. Patient denies any chest pain today. discussed today by ER specialist with reporting specialist Doctor Curry who asked to transfer the patient to [facility] ICU and with Heparin drip for Cardiac Cath in am tomorrow. as per patient he is evaluated in Emergency room he states he is having Chest pain associated with Strenuous Exercise when he is shoveling, doing landscape, he develops left hand pain radiated to left arm and left anterior precordial area as burning sensation that lasts for five minutes, 4 to 5/10 in intensity, he was called by his Primary care physician at [facility] today telling him that his test from yesterday his Stress test was abnormal that needed to come to ER for evaluation. 12/17 Seen in his bedroom status post Cardiac Cath, found Severe Three vessel Coronary artery disease, 1/5 Coronary bypass grafts were patent, normal descending aorta, Normal left sided filling pressures, has Diffuse disease, left internal mammary artery is patent Right Coronary is Collateralized, only area for intervention is Circumflex Proximally, not candidate to repeat Surgical Bypass medical management. 12/18 Seen in his bedroom in the presence of nurse Miss Giraldo patient stable, asked to increase fluid intake and continue to follow with reporting specialist on one week. will continue medical management. Objective Vital Signs Date Time Temp Pulse Resp B/P Pulse Ox O2 Delivery O2 Flow Rate FiO2 12/18/16 10:00 81 12/18/16 09:00 98 12/18/16 08:00 84 12/18/16 07:30 98.1 79 16 102/55 95 12/18/16 07:00 77 12/18/16 06:00 70 12/18/16 05:00 65 12/18/16 04:00 98.0 64 18 113/61 95 12/18/16 04:00 64 12/18/16 03:00 64 12/18/16 02:00 61 12/18/16 01:00 67 12/18/16 00:00 70 12/18/16 00:00 97.9 70 18 101/63 95 12/17/16 23:00 66 12/17/16 22:00 68 12/17/16 21:00 71 12/17/16 20:00 73 12/17/16 19:00 97.8 76 18 104/68 96 12/17/16 19:00 78 12/17/16 18:01 87 12/17/16 17:01 73 12/17/16 16:00 71 12/17/16 15:30 97.6 75 18 108/70 94 12/17/16 15:00 68 12/17/16 14:01 68 12/17/16 13:00 71 12/17/16 12:00 71 I/O 12/17/16 12/17/16 12/17/16 12/18/16 12/18/16 12/18/16 07:00 15:00 23:00 07:00 15:00 23:00 Intake Total 1150 ml 480 ml Output Total 450 ml Balance 700 ml 480 ml Intake Oral 600 ml 480 ml IV Total 550 ml Output Urine Total 450 ml # Voids 3 2 # Bowel Movements 1 0 Result Diagram: 12/18/16 0430 12/18/16 0430 Imaging Last Impressions Chest X-Ray 12/16/16 1013 Signed Impressions: Service Date/Time: December 10:40 - CONCLUSION: No acute disease. Sky Herrera MD Procedures No procedures performed Other Results Laboratory Tests Test 12/16/16 12/16/16 12/17/16 12/17/16 10:17 18:30 00:00 01:20 Total Bilirubin 0.9 MG/DL Aspartate Amino Transf 22 U/L (AST/SGOT) Alanine Aminotransferase 20 U/L (ALT/SGPT) Alkaline Phosphatase 95 U/L Total Protein 7.1 GM/DL Albumin 3.5 GM/DL Hemoglobin A1c 6.3 % Total Creatine Kinase 98 U/L Troponin I 0.12 NG/ML Triglycerides Level 64 MG/DL Cholesterol Level 136 MG/DL LDL Cholesterol 88 MG/DL HDL Cholesterol 34.8 MG/DL Cholesterol/HDL Ratio 3.90 RATIO Free Thyroxine 0.84 NG/DL Thyroid Stimulating Hormone 1.340 uIU/ML 3rd Gen Blood Type O POSITIVE Antibody Screen NEGATIVE Blood Bank Comment Urine Color LIGHT-YELLOW Urine Turbidity CLEAR Urine pH 6.0 Urine Specific [place] 1.008 Urine Protein NEG mg/dL Urine Glucose (UA) NEG mg/dL Urine Ketones NEG mg/dL Urine Occult Blood NEG Urine Nitrite NEG Urine Bilirubin NEG Urine Urobilinogen LESS THAN 2.0 MG/DL Urine Leukocyte Esterase NEG Urine Squamous Epithelial <1 /hpf Cells Microscopic Urinalysis Comment CULT NOT INDICATED Prothrombin Time 11.3 SEC Prothromb Time International 1.0 RATIO Ratio Test 12/17/16 12/18/16 09:46 04:30 Activated Partial 33.4 SEC Thromboplast Time Magnesium Level 1.9 MG/DL White Blood Count 8.4 TH/MM3 Red Blood Count 4.83 MIL/MM3 Hemoglobin 14.3 GM/DL Hematocrit 42.8 % Mean Corpuscular Volume 88.5 FL Mean Corpuscular Hemoglobin 29.6 PG Mean Corpuscular Hemoglobin 33.5 % Concent Red Cell Distribution Width 13.6 % Platelet Count 202 TH/MM3 Mean Platelet Volume 7.9 FL Neutrophils (%) (Auto) 65.1 % Lymphocytes (%) (Auto) 23.2 % Monocytes (%) (Auto) 9.0 % Eosinophils (%) (Auto) 2.2 % Basophils (%) (Auto) 0.5 % Neutrophils # (Auto) 5.4 TH/MM3 Lymphocytes # (Auto) 1.9 TH/MM3 Monocytes # (Auto) 0.8 TH/MM3 Eosinophils # (Auto) 0.2 TH/MM3 Basophils # (Auto) 0.0 TH/MM3 CBC Comment DIFF FINAL Differential Comment Sodium Level 139 MEQ/L Potassium Level 3.9 MEQ/L Chloride Level 104 MEQ/L Carbon Dioxide Level 26.0 MEQ/L Anion Gap 9 MEQ/L Blood Urea Nitrogen 19 MG/DL Creatinine 1.40 MG/DL Estimat Glomerular Filtration 51 ML/MIN Rate Random Glucose 84 MG/DL Calcium Level 8.9 MG/DL Objective Remarks GENERAL: Well-nourished, well-developed patient. SKIN: Warm and dry. HEAD: Normocephalic. EYES: No scleral icterus. No injection or drainage. NECK: Supple, trachea midline. No JVD or lymphadenopathy. CARDIOVASCULAR: Regular rate and rhythm without murmurs, gallops, or rubs. RESPIRATORY: Breath sounds equal bilaterally. No accessory muscle use. GASTROINTESTINAL: Abdomen soft, non-tender, nondistended. MUSCULOSKELETAL: No cyanosis, or edema. BACK: Nontender without obvious deformity. No CVA tenderness. Neurologic exam normal. Medications and IVs Current Medications Medications (Trade) Dose Ordered Sig/[place] Route Start Time Stop Time Status Last Admin (Ecotrin Ec) 81 mg DAILY PO 12/17/16 09:00 12/18/16 08:00 (Vasotec) 20 mg BID PO 12/16/16 21:00 12/18/16 08:00 (Lopressor) 50 mg BID PO 12/16/16 21:00 12/18/16 08:01 (NS Flush) 2 ml UNSCH PRN FLUSH 12/16/16 13:30 (NS Flush) 2 ml BID FLUSH 12/16/16 21:00 12/18/16 08:24 (Tylenol) 650 mg Q4H PRN PO 12/16/16 13:30 (Zofran Inj) 4 mg Q6H PRN IVP 12/16/16 13:30 (Reglan Inj) 5 mg Q6H PRN IV PUSH 12/16/16 13:30 (Dulcolax Supp) [address] 12/16/16 13:30 (Colace) 100 mg Q12HR PO 12/16/16 15:00 12/17/16 21:44 (Ambien) 5 mg HS PRN PO 12/16/16 13:30 (Narcan Inj) 0.4 mg UNSCH PRN IV 12/16/16 13:30 (Pravachol) 40 mg DAILY PO 12/16/16 15:00 12/18/16 08:00 (Atropine Inj) 0.5 mg UNSCH PRN IV 12/17/16 09:45 (Plavix) 75 mg DAILY PO 12/17/16 09:45 12/18/16 08:02 (Imdur) 60 mg DAILY@07 PO 12/18/16 07:00 12/18/16 05:17 A/P Problem List: (1) NSTEMI (non-ST elevated myocardial infarction) ICD Code: I21.4 Assessment and Plan 1. Atypical chest pain in a patient with CAD status pos CABG he could not complete his Stress test yesterday and came to this facility today, admitted for Cardiac Cath tomorrow. EKG shows sinus rhythm T-wave inversion in lead I, II, aVR, aVL, V4 through V6. Probable abnormal Stress test already seen by reporting specialist continue heparin drip and Cardiac cath in am tomorrow. given Aspirin. continue Cardiac monitoring, Cardiac Enzymes. Echocardiogram left ventricle cavity size mildly dilated, wall thickness was increased in pattern of LVH, Systolic function mildly reduced EF 45-50%, Hypokinesis of the mid inferolateral, inferior and apical myocardium. has Severe three vessel disease, 1/5 of bypass occluded, continue medical management not suitable for redo bypass. 2. Acute Kidney Injury today mild worsening asked to the patient to continue plenty of fluids and follow with PCP and reporting specialist. 3. Hypertension Controlled. DVT prophylaxis with Heparin. Awaiting discharge Order by Cardiology for discharge. Code Status Full Code. Discharge Planning Already cleared by reporting specialist. Ed Pope MD Dec 18, 2016 11:44
[2016-12-18] MEDS ORDERED: PLAV75TA29 PO (11:47)
[2016-12-18] MEDS ORDERED: ISOS60TA PO (11:47)
[2016-12-18] MEDS ORDERED: PRAV40TA PO (11:47)
--- NOTE | 2016-12-18 11:52 | HHI.DS ---
Discharge Summary Admission Date Dec 16, 2016 at 13:18 Discharge Date: Dec 18, 2016 Admitting Diagnosis NSTEMI (1) NSTEMI (non-ST elevated myocardial infarction) ICD Code: I21.4 Diagnosis: Principal Procedures Cardiac Cath Brief History - From Admission This is a pleasant 61 y/o Male who has Intermittent chest pain for the last three months, associated with exertion, he has Sharp burning pain started on left thumb with radiation, left chest pain and across anterior chest pain, Patient denies any palpitation diaphoresis. Patient states that the pain usually lasts about 5 minutes and resolved completely. Patient has history of CAD, status post VT and CABG in 2008. Patient has history hypertension, dyslipidemia. Patient is a smoker. Patient denies any history of diabetes. Patient was seen by physician at the [facility] clinic yesterday a nd had stress test done. Patient could not finish the stress test because he started having shortness of breath. Patient was advised to go to the emergency room for evaluation. Patient denies any chest pain today. discussed today by ER specialist with child life specialist Doctor Patricio who asked to transfer the patient to [facility] ICU and with Heparin drip for Cardiac Cath in am tomorrow. as per patient he is evaluated in Emergency room he states he is having Chest pain associated with Strenuous Exercise when he is shoveling, doing landscape, he develops left hand pain radiated to left arm and left anterior precordial area as burning sensation that lasts for five minutes, 4 to 5/10 in intensity, he was called by his Primary care physician at [place] today telling him that his test from yesterday his Stress test was abnormal that needed to come to ER for evaluation. CBC/BMP: 12/18/16 0430 12/18/16 0430 Significant Findings Laboratory Tests Test 12/16/16 12/16/16 12/16/16 12/17/16 10:17 14:01 18:30 01:20 Monocytes (%) (Auto) 10.8 % (0.0-8.0) Blood Urea Nitrogen 22 MG/DL (7-18) 19 MG/DL (7-18) Creatinine 1.46 MG/DL (0.60-1.30) Estimat Glomerular Filtration 49 ML/MIN (>89) 56 ML/MIN (>89) Rate Troponin I 0.26 NG/ML 0.22 NG/ML 0.12 NG/ML (0.02-0.05) (0.02-0.05) (0.02-0.05) Activated Partial 48.1 SEC 46.4 SEC Thromboplast Time (24.3-30.1) (24.3-30.1) Hemoglobin A1c 6.3 % (4.3-6.0) HDL Cholesterol 34.8 MG/DL (40.0-60.0) Calcium Level 8.4 MG/DL (8.5-10.1) Test 12/17/16 12/18/16 09:46 04:30 Activated Partial 33.4 SEC Thromboplast Time (24.3-30.1) Monocytes (%) (Auto) 9.0 % (0.0-8.0) Blood Urea Nitrogen 19 MG/DL (7-18) Creatinine 1.40 MG/DL (0.60-1.30) Estimat Glomerular Filtration 51 ML/MIN (>89) Rate Imaging Last Impressions Chest X-Ray 12/16/16 1013 Signed Impressions: Service Date/Time: December 10:40 - CONCLUSION: No acute disease. Sky Herrera MD PE at Discharge GENERAL: Well-nourished, well-developed patient. SKIN: Warm and dry. HEAD: Normocephalic. EYES: No scleral icterus. No injection or drainage. NECK: Supple, trachea midline. No JVD or lymphadenopathy. CARDIOVASCULAR: Regular rate and rhythm without murmurs, gallops, or rubs. RESPIRATORY: Breath sounds equal bilaterally. No accessory muscle use. GASTROINTESTINAL: Abdomen soft, non-tender, nondistended. MUSCULOSKELETAL: No cyanosis, or edema. BACK: Nontender without obvious deformity. No CVA tenderness. Neurologic exam normal. Hospital Course This is a pleasant 61 y/o Male who has Intermittent chest pain for the last three months, associated with exertion, he has Sharp burning pain started on left thumb with radiation, left chest pain and across anterior chest pain, Patient denies any palpitation diaphoresis. Patient states that the pain usually lasts about 5 minutes and resolved completely. Patient has history of CAD, status post VT and CABG in 2008. Patient has history hypertension, dyslipidemia. Patient is a smoker. Patient denies any history of diabetes. Patient was seen by physician at the [place] clinic yesterday a nd had stress test done. Patient could not finish the stress test because he started having shortness of breath. Patient was advised to go to the emergency room for evaluation. Patient denies any chest pain today. discussed today by ER specialist with child life specialist Doctor Patricio who asked to transfer the patient to [facility] ICU and with Heparin drip for Cardiac Cath in am tomorrow. as per patient he is evaluated in Emergency room he states he is having Chest pain associated with Strenuous Exercise when he is shoveling, doing landscape, he develops left hand pain radiated to left arm and left anterior precordial area as burning sensation that lasts for five minutes, 4 to 5/10 in intensity, he was called by his Primary care physician at [facility] today telling him that his test from yesterday his Stress test was abnormal that needed to come to ER for evaluation. 12/17 Seen in his bedroom status post Cardiac Cath, found Severe Three vessel Coronary artery disease, 1/5 Coronary bypass grafts were patent, normal descending aorta, Normal left sided filling pressures, has Diffuse disease, left internal mammary artery is patent Right Coronary is Collateralized, only area for intervention is Circumflex Proximally, not candidate to repeat Surgical Bypass medical management. 12/18 Seen in his bedroom in the presence of nurse Miss Giraldo patient stable, asked to increase fluid intake and continue to follow with child life specialist on one week. will continue medical management. Assessment and Plan 1. Atypical chest pain in a patient with CAD status pos CABG he could not complete his Stress test yesterday and came to this facility today, admitted for Cardiac Cath tomorrow. EKG shows sinus rhythm T-wave inversion in lead I, II, aVR, aVL, V4 through V6. Probable abnormal Stress test already seen by child life specialist continue heparin drip and Cardiac cath in am tomorrow. given Aspirin. continue Cardiac monitoring, Cardiac Enzymes. Echocardiogram left ventricle cavity size mildly dilated, wall thickness was increased in pattern of LVH, Systolic function mildly reduced EF 45-50%, Hypokinesis of the mid inferolateral, inferior and apical myocardium. has Severe three vessel disease, 1/5 of bypass occluded, continue medical management not suitable for redo bypass. Added Pravastatin 40 mg daily, Plavix 75 mg daily and Isosorbide mononitrate 60 mg daily. 2. Acute Kidney Injury today mild worsening asked to the patient to continue plenty of fluids and follow with PCP and child life specialist. 3. Hypertension Controlled. DVT prophylaxis with Heparin. Awaiting discharge Order by Cardiology for discharge. Code Status Full Code. Discharge Planning Already cleared by child life specialist. Pt Condition on Discharge: Stable Discharge Disposition: Discharge Home Discharge Time: <= 30 minutes Discharge Instructions DIET: Follow Instructions for: Heart Healthy Diet Activities you can perform: Regular-No Restrictions Ed Pope MD Dec 18, 2016 11:52
== END 2016-12-18 13:26 | disposition home or self-care (01) | DRG 281 ==
LOC: NEPA 09:50 → OBSVTOIN 13:18 → NEDA 13:18 → INTOOBSV 13:18 → HCIN 15:37
PROVIDERS: ADMIT Internal Medicine; ATTEND Internal Medicine
PROC: B2131ZZ Fluoroscopy of Multiple Coronary Artery Bypass Grafts using Low Osmolar Contrast (ICD-10-PCS; 2016-12-17)
PROC: B2111ZZ Fluoroscopy of Multiple Coronary Arteries using Low Osmolar Contrast (ICD-10-PCS; 2016-12-17)
PROC: B3101ZZ Fluoroscopy of Thoracic Aorta using Low Osmolar Contrast (ICD-10-PCS; 2016-12-17)
PROC: B2181ZZ Fluoroscopy of Left Internal Mammary Bypass Graft using Low Osmolar Contrast (ICD-10-PCS; 2016-12-17)
PROC: 4A023N7 Measurement of Cardiac Sampling and Pressure, Left Heart, Percutaneous Approach (ICD-10-PCS; principal; 2016-12-17 09:45)
DX: I21.4 Non-ST elevation (NSTEMI) myocardial infarction (principal); N17.9 Acute kidney failure, unspecified; I25.810 Atherosclerosis of coronary artery bypass graft(s) without angina pectoris; I10 Essential (primary) hypertension; I25.10 Atherosclerotic heart disease of native coronary artery without angina pectoris; E78.5 Hyperlipidemia, unspecified; I25.2 Old myocardial infarction; F17.290 Nicotine dependence, other tobacco product, uncomplicated; F10.10 Alcohol abuse, uncomplicated
CPT/HCPCS: 71010; 80048; 80053; 80061; 81001; 82550; 83036; 83735; 84439; 84443; 84484; 85025; 85610; 85730; 86850; 86900; 86901; 93005; 93306; 93454; 93567; C1769; C1893; J1644; J2250; J3010; J7030; Q9967